=== PATIENT | male | born 2000 | race Native Hawaiian/Other Pacific Islander ===

== ENCOUNTER 2022-05-05 02:12 | Emergency (ER) | payer BC, SELFPAY ==
[2022-05-05 02:22] VITALS: BP 153/89; PULSE 89; RESP 18; TEMP 36.7; O2SAT 99; BMI 33.7
[2022-05-05 02:52] VITALS: BP 145/78; PULSE 89; RESP 18; TEMP 36.6; O2SAT 99
[2022-05-05 03:02] VITALS: BP 145/78; PULSE 89; RESP 18; TEMP 36.6
--- NOTE | 2022-05-05 04:01 | ED_ITS ---
HPI - General Adult General Chief complaint: Unspecified Complaint, Adult Stated complaint: body aches, headaches Time Seen by Provider: 05/05/22 02:17 Source: patient Mode of arrival: ambulatory Limitations: no limitations History of Present Illness HPI narrative: 22-year-old male to female transitioning patient presents to the emergency department with non specific feeling of unwell. Reports vague anterior neck and jaw pain radiating into the left [employer] numbness and tingling intermittently in the bilateral hands and legs with an abnormal taste in the mouth for the last 5 days. There is no chest pain, syncope, dyspnea. Does note some anxiety but no specific psychosis or significant mental health concerns today. Was apparently evaluated in the [facility] ED earlier today and had a workup, exam, swabs for COVID, influenza and RSV that were thankfully negative. Patient takes no medications, has no allergies, is not experiencing any fevers. Has not recently had any surgeries. There has been no trauma or injury. She is not able to describe any emergent sound in symptoms to me today. Has some generalized body aches but nonspecific again. Is able to eat and drink normally, no urinary guerita nges. Just feels generally unwell. Reports that she moved to our area in January, has not established with a primary care provider but does have an appointment pending literally tomorrow to look into this further. When I try to probe and ask what is so concerning that she went to a 2nd emergency department at 2:00 a.m., she is not able to elaborate on this. When asked specifically if she is wanting a full exam, assessment, lab work, she nods. Denies any significant past medical history, surgical history, medications, allergies. Denies any use of illicit substances. Pending appointment is with Dr. Clark at [facility] she reports. ROS is positive for multiple complaints as described above. No specific cardiovascular, respiratory, hematological or neurological changes Related Data Home Medications Medication Instructions Recorded Confirmed No Known Home Medications 05/05/22 05/05/22 Allergies Allergy/AdvReac Type Severity Reaction Status Date / Time No Known Drug Allergies Allergy Verified 05/05/22 02:25 [facility] Medical History (Updated 05/05/22 @ 02:52 by Konstantin Esqueda RN) Anxiety Depression Surgical History (Updated 05/05/22 @ 02:52 by Konstantin Esqueda RN) No significant past surgical history Social History Smoking Status: Never smoker Do you use any of these nicotine containing products: None Second hand tobacco smoke exposure: No How often do you have a drink containing alcohol: never How often do you have six or more drinks on one occasion: Never AUDIT-C Alcohol total score: 0 Non-prescribed substance use: denies use Exam Const: Vital Signs, click to edit/add: Vital Signs - 24 hr 05/05/22 02:22 05/05/22 02:52 05/05/22 03:02 Temperature 98.0 F 97.9 F 97.9 F Pulse Rate [Right Pulse Oximeter] 89 89 89 Respiratory Rate 18 18 18 Blood Pressure [Ri ght Upper Arm] 153/89 H 145/78 H 145/78 H Pulse Oximetry 99 99 Oxygen Delivery Me thod Room Air Room Air Documenting provider has reviewed patient's vital signs: yes Common normals: no apparent distress General appearance: cooperative, comfortable and well kempt Other: Anxious but friendly and cooperative. HENMT: Common normals: normocephalic Head and scalp: normocephalic Face and sinus: normal facial exam Mouth: oral and palatal mucosa normal Throat: posterior oropharynx normal Eye: Common normals: PERRL, conjunctivae normal and no scleral icterus Conjunctiva: conjunctiva(e) normal Pupil: PERRL Neck & C-Spine: Common normals: full ROM, no lymphadenopathy, no meningeal signs and thyroid normal Thyroid: thyroid normal Resp: Common normals: normal respiratory effort, no use of accessory muscles and clear to auscultation bilaterally Effort & inspection: able to speak in complete sentences Auscultation: clear to auscultation bilaterally Cardio: Common normals: regular rate, regular rhythm, S1 normal heart sound, S2 normal heart sound, no murmurs and peripheral pulses 2+ throughout Rate: regular rate Rhythm: regular rhythm Heart sounds: S1 normal and S2 normal Peripheral pulses: pulses 2+ throughout GI: Common normals: Normal to inspection, nondistended, normoactive bowel sounds present, soft to palpation, non-tender, no hepatosplenomegaly and no masses Palpation: soft and no hepatosplenomegaly Extremity: Common normals: normal to inspection, normal capillary refill and no pedal edema Neuro: Meningeal signs: no meningeal signs Gait (neuro): normal gait (Observed walking to exam room) Motor exam: strength 5/5 throughout, no tremor noted and no movement abnormalities noted Psych: Common normals: speech normal Appearance: well kempt Attitude: engaged Speech: normal speech Mood and affect: anxious (Mildly anxious but redirectable.) Insight: insight good Judgement: judgment good Skin: Common normals: no rashes or lesions noted General skin exam: no rashes or lesions noted Course Vital Signs Vital signs: Initial Vital Signs Temperature 98.0 F 05/05/22 02:22 Temperature Source Temporal Artery Scan 05/05/22 02:22 Pulse Rate 89 05/05/22 02:22 Respiratory Rate 18 05/05/22 02:22 Blood Pressure 153/89 H 05/05/22 02:22 Blood Pressure Mean 110 05/05/22 02:22 Blood Pressure Position Sitting 05/05/22 02:22 Pulse Oximetry 99 05/05/22 02:22 Oxygen Delivery Method 05/05/22 02:22 Vital Signs Temperature 98.0 F 05/05/22 02:22 Pulse Rate 89 05/05/22 02:22 Respiratory Rate 18 05/05/22 02:22 Blood Pressure 153/89 H 05/05/22 02:22 Pulse Oximetry 99 05/05/22 02:22 Oxygen Delivery Method 05/05/22 02:22 Temperature 97.9 F 05/05/22 03:02 Pulse Rate 89 05/05/22 03:02 Respiratory Rate 18 05/05/22 03:02 Blood Pressure 145/78 H 05/05/22 03:02 Pulse Oximetry 99 05/05/22 02:52 Oxygen Delivery Method 05/05/22 02:52 Medical Decision Making [facility] Narrative Medical decision making narrative: Counseled patient that with a completely normal exam, normal swabs, reassuring vital signs, I do not recommend that we repeat the work that is already been done and different emergency room tonight. She needs to establish care with a primary care provider, have routine basic labs in preventative care performed. They should potentially explore anxiety more. I am fully reassure that there is not an emergent process going on tonight and she is safe to leave the emergency department. She verbalizes understanding and agreement. I do suspect that there could be a viral illness flaring her symptoms more and have discussed this. Typical anticipatory guidance and warning symptoms discussed regarding this diagnosis. Discharge Plan Discharge Clinical Impression: Vague bodily discomfort Patient Disposition: Home, Self-Care Condition: Stable Instructions: Viral Syndrome (ED) Additional Instructions: I do not appreciate any emergent illness today. I am reassured by the fact that you have had an assessment now at 2 facilities today and have had swabs negative for COVID, RSV, influenza. As we discussed, I think he would benefit greatly from a full physical, lab work and a relationship with a primary care provider. In the emergency setting, I do not detect any emergent threats to your health. Please keep your clinic appointment for tomorrow to discuss your symptoms further. Activity Level: No Restrictions Discharge Diet: Regular Prescriptions: No Action No Known Home Medications Stand Alone Forms: [employer] Info Instructions
== END 2022-05-05 03:10 | disposition home or self-care (01) ==
LOC: ED 03:08
PROVIDERS: Emergency Provider Family Medicine; PCP Family Medicine
DX: M79.10 Myalgia, unspecified site (principal)
CPT/HCPCS: 99282

== ENCOUNTER 2022-05-18 23:59 | Emergency (ER) | payer BC, SELFPAY ==
[2022-05-19 00:09] VITALS: BP 152/102; PULSE 85; RESP 18; TEMP 37; O2SAT 99; BMI 37.9
--- NOTE | 2022-05-19 00:30 | ED.GENADULT ---
HPI - General Adult General Chief complaint: Sore Throat Stated complaint: hard to breath,throat hurts Time Seen by Provider: 05/19/22 00:02 Source: patient Mode of arrival: ambulatory Limitations: no limitations History of Present Illness HPI narrative: 22-year-old male to female transitioning patient presents to the emergency department a 2nd time in 2 weeks with vague non emergent complaints. Patient was evaluated in the middle of the night 1300 with mild symptoms consistent with a viral illness, no workup was performed as they had had appropriate swabs, blood work and workup earlier in the same day at a different emergency department. Patient reports sore throat, vague mild body aches, feeling generally unwell. Biggest concern is sore throat. There has been no fever. Reports that they were evaluated in an urgent care 9 days ago and a strep swab was positive only at that time. They were treated with penicillin and this has not made any improvement in symptoms. They were told if symptoms worsened, to come to the emergency department. She comes in today for re-evaluation even though things have not worsened. Again, it is the middle of the night. No use of Tylenol or ibuprofen today. Patient presented again to urgent care, reports [facility] in [place] 3 days ago for the exact same complaints. Reports that a sed rate, CBC and basic metabolic panel by the description I can gather was performed and these were all negative specifically. Has 1 more day of the penicillin remaining. Is able to eat and drink. No pertinent travel or new illness exposures. Had an appointment scheduled with primary care but had to cancel last minute. Has not yet rescheduled. No obvious other source of issues like reflux, injury or trauma. Does not smoke. Past medical history notable for hypertension, not currently on treatment. Denies use of any prescription medications besides the penicillin. Denies allergies. Socially nonsmoker with no unusual exposures or travel. Related Data Home Medications Medication Instructions Recorded Confirmed dexamethasone 4 mg tablet 4 mg PO DAILY 05/19/22 05/19/22 penicillin V potassium 500 mg 500 mg PO BID 05/19/22 05/19/22 tablet Allergies Allergy/AdvReac Type Severity Reaction Status Date / Time No Known Drug Allergies Allergy Verified 05/05/22 02:25 [facility] Medical History Anxiety Depression Surgical History No significant past surgical history Social History Smoking Status: Never smoker Do you use any of these nicotine containing products: None Second hand tobacco smoke exposure: No How often do you have a drink containing alcohol: never How often do you have six or more drinks on one occasion: Never AUDIT-C Alcohol total score: 0 Non-prescribed substance use: denies use Exam Const: Vital Signs, click to edit/add: Vital Signs - 24 hr 05/19/22 00:09 Temperature 98.6 F Pulse Rate [Right Pulse Oximeter] 85 Respiratory Rate 18 Blood Pressure [Ri ght Upper Arm] 152/102 H Pulse Oximetry 99 Oxygen Delivery Me thod Room Air Documenting provider has reviewed patient's vital signs: yes Common normals: no apparent distress and alert General appearance: cooperative, comfortable and well kempt Orientation/consciousness: Yes awake HENMT: Common normals: normocephalic and TM's normal bilaterally Head and scalp: normocephalic Face and sinus: normal facial exam Tympanic membrane: TM's normal bilaterally Other: No swelling to the pharyngeal arches in the oropharynx. There is a slight blistery pattern all long the posterior soft palate suspicious for [id number] disease. Tonsils are not enlarged. Eye: Common normals: conjunctivae normal and no scleral icterus Conjunctiva: conjunctiva(e) normal Neck & C-Spine: Common normals: full ROM and no lymphadenopathy Resp: Common normals: normal respiratory effort and clear to auscultation bilaterally Auscultation: clear to auscultation bilaterally Cardio: Common normals: regular rate, regular rhythm, S1 normal heart sound, S2 normal heart sound, no murmurs and peripheral pulses 2+ throughout Rate: regular rate Rhythm: regular rhythm Heart sounds: S1 normal and S2 normal Peripheral pulses: pulses 2+ throughout Neuro: Sensorium/orientation: awake and alert Speech: speech normal Motor exam: no tremor noted and no movement abnormalities noted Psych: Common normals: speech normal Appearance: well kempt Attitude: engaged Activity/motor behavior: appropriate eye contact Speech: normal speech Mood and affect: euthymic mood Insight: fair Judgement: fair Skin: Common normals: no rashes or lesions noted General skin exam: no rashes or lesions noted Course Course Hospital Course: Counseled patient on reassuring exam. Recommend repeat swabs for strep, viral studies. Since patient has had appropriate sed rate, CBC and basic metabolic panel per their report within the last 3 days and no worsening of any symptoms, I do not recommend repeating these. Suspect chronic sore throat from chronic disease such as GERD, postnasal drip or other ongoing etiology, none of which seem least little bit emergent tonight. If swabs normal, will recommend GI cocktail and Prilosec. Vital Signs Vital signs: Initial Vital Signs Temperature 98.6 F 05/19/22 00:09 Temperature Source Temporal Artery Scan 05/19/22 00:09 Pulse Rate 85 05/19/22 00:09 Respiratory Rate 18 05/19/22 00:09 Blood Pressure 152/102 H 05/19/22 00:09 Blood Pressure Mean 118 05/19/22 00:09 Blood Pressure Position Sitting 05/19/22 00:09 Pulse Oximetry 99 05/19/22 00:09 Oxygen Delivery Method 05/19/22 00:09 Vital Signs Temperature 98.6 F 05/19/22 00:09 Pulse Rate 85 05/19/22 00:09 Respiratory Rate 18 05/19/22 00:09 Blood Pressure 152/102 H 05/19/22 00:09 Pulse Oximetry 99 05/19/22 00:09 Oxygen Delivery Method 05/19/22 00:09 Temperature 98.6 F 05/19/22 00:09 Pulse Rate 85 05/19/22 00:09 Respiratory Rate 18 05/19/22 00:09 Blood Pressure 152/102 H 05/19/22 00:09 Pulse Oximetry 99 05/19/22 00:09 Oxygen Delivery Method 05/19/22 00:09 Medical Decision Making MDM Narrative Medical decision making narrative: Patient able to speak in full sentences, no signs of hypoxia, no swelling of the airway. Able to swallow, manage secretions and benign, reassuring physical exam. Swabs are reviewed without any signs of strep, influenza, COVID or RSV. This is reassuring as well. Findings were discussed with patient. Again, we have reviewed appropriate use of the emergency department. Strongly encouraged to make a follow-up appointment with primary care. We discussed that the mild viral infections still persisting or this could be related to an ongoing chronic sore throat issue. Based on BMI, the most likely etiology if this were a chronic issue would be from gastric reflux. Recommended a trial of Prilosec and a GI cocktail to see if this improves symptoms. If symptoms are improved with this, would recommend that the patient self initiate [id number] Prilosec for 2-3 weeks. Make a primary care followup as soon as possible to address hypertension, ongoing issues. Lab Data Labs: Lab Results 05/19/22 05/19/22 Range/Units 00:30 00:30 SARS-CoV-2 (PCR) Negative SARS-CoV-2 (Negative) Influenza Type A (PCR) Negative PCR FLU A (Negative) Influenza Type B (PCR) Negative PCR FLU B (Negative) RSV (PCR) Negative PCR RSV (Negative) Group A Strep DNA NOT DETECTED (Not Detectd) Discharge Plan Discharge Clinical Impression: Chronic sore throat Patient Disposition: Home, Self-Care Condition: Stable Additional Instructions: Your test for strep, RSV, influenza, COVID are all negative today. This is reassuring. Since you have had appropriate blood work within the last few days, I do not recommend repeating these since her exam is also reassuring. Her sore throat is from 1. The most likely reason is you are still having persistent symptoms consistent with a viral sore throat, as others have counseled you on as well. This may last up to a few weeks. Your certainly not taking advantage of [id number] treatments that would be very helpful to you. Appropriate dose of Tylenol is 650 mg every 4 hours or 1000 mg every 6 hours. You may take a maximum of 4000 mg per day. You may also use ibuprofen, 600 mg every 6 hours. Use these as first-line therapy for your sore throat. Other etiologies for so through wrote include chronic issues such as gastric reflux or postnasal drip. We have given you a dose of Prilosec and a GI cocktail to see if this improves your throat. Effects of the GI cocktail will be immediate and last only an hour or 2 but the Prilosec will be longer lasting. If you notice that your symptoms are much better controlled for the next 24 hours, this would be a sign that reflux is playing a part in your symptoms. You would then purchase some [id number] omeprazole at any local pharmacy or grocery store and take this once daily for the next few weeks. Please keep an appointment with the primary care provider to evaluate your ongoing issues and high blood pressure. You mentioned that your given a dose of steroids the you did not take, based on your exam and presentation today, I do not recommend refilling this as it can make your blood pressure higher and is not likely to be beneficial to you. Activity Level: No Restrictions Discharge Diet: Regular Prescriptions: No Action penicillin V potassium 500 mg tablet 500 mg PO BID Label Comments: TAKE 1 TABLET BY MOUTH TWICE DAILY FOR 10 DAYS dexamethasone 4 mg tablet 4 mg PO DAILY Follow Up/Referrals: Moni Clark MD [Referring] - Stand Alone Forms: [employer] Info Instructions
[2022-05-19 00:55] LABS: Strep A DNA Probe* NOT DETECTED (Not Detectd)
[2022-05-19 01:06] LABS: PCR FLU A Negative PCR FLU A (Negative); PCR FLU B Negative PCR FLU B (Negative); PCR RSV Negative PCR RSV (Negative); SARS PCR* Negative SARS-CoV-2 (Negative)
[2022-05-19 01:15] VITALS: TEMP 37
[2022-05-19] MEDS: OMEPRAZOLE 20 MG CAPSULE DR PO (01:15)
[2022-05-19] MEDS: IBUPROFEN 200 MG TABLET 600 MG PO (01:15)
[2022-05-19] MEDS: GI COCKTAIL (VISC LIDO/ANTACID) 30 ML PO (01:24)
[2022-05-19 01:29] VITALS: BP 145/85; PULSE 85; RESP 18; TEMP 36.1; O2SAT 99
[2022-05-19 01:38] VITALS: BP 145/85; PULSE 85; RESP 18; TEMP 36.1
== END 2022-05-19 01:39 | disposition home or self-care (01) ==
PROVIDERS: Emergency Provider Family Medicine; PCP Family Medicine
DX: J02.9 Acute pharyngitis, unspecified (principal)
CPT/HCPCS: 87502; 87634; 87635; 87651; 99282; 99283; A9270

== ENCOUNTER 2022-05-25 14:04 | Outpatient (CLI) | payer BC, SELFPAY ==
--- OUTSIDE RECORDS SUMMARY | 2022-05-25 14:07 | XMS_ITS | Clinical Summary ---
:2000 Author Organization [facility] [place] [address] Care Team Providers Name Role Phone Pcp, No Primary Care Provider Unavailable Allergies No known active allergies Medications Medication Sig Dispensed Refills Start Date End Date Status penicillin v potassium TAKE 1 TABLET 0 05/10/2022 Active (PEN-VEE K) 500 mg BY MOUTH TWICE tablet DAILY FOR 10 DAYS dexAMETHasone Take 1 tablet 9 Tablet 0 05/16/2022 A ctive (DECADRON) 4 mg by mouth twice tabletIndications: daily for 3 Tension headache, Neck days then take pain, Strep throat 1 tablet daily for 3 days tiZANidine (ZANAFLEX) Take 1 tablet 7 Tablet 0 05/16/2022 Active 4 mg by mouth every tabletIndications: bedtime for Neck pain muscle [id number] cloNIDine HCL Take 1 Tablet 1 Tablet 0 05/16/2022 05/16/2022 (CATAPRES) 0.1 mg (0.1 mg) by tabletIndications: mouth one time Tension headache for 1 dose. dexAMETHasone Take 1 Tablet 6 Tablet 0 05/17/2022 05/20/2022 (DECADRON) 4 mg (4 mg) by mouth tabletIndications: two times daily Medication refill with meals for 3 days. Active Problems Not on file Encounters Date Type Specialty Care Team Description 05/17/2022 Telephone Marissa Pop NP 05/16/2022 Office Visit Mariela Anderson PA Head Pain/problem 05/16/2022 Telephone Pcp, No Need Meds 05/16/2022 Travel 05/13/2022 Telephone Ally Manley MD A ppointment from Last 3 Months Social History Tobacco Use Types Packs/Day Years Used Date Never Assessed Sex Assigned at Date Recorded Not on file COVID-19 Exposure Response Date Recorded In the last 10 days, have you been in contact No / Unsure 05/16/2022 12:58 PM ESCROW ASSISTANT with someone who was confirmed or suspected to have Coronavirus/COVID-19? Obstetrics History Last Filed Vital Signs Vital Sign Reading Time Taken Comments Blood Pressure 176/113 05/16/2022 2:07 PM [facility]CROW ASSISTANT Pulse 84 05/16/2022 1:11 PM [employer]CROW ASSISTANT Temperature 36.8 ??C (98.3 ??F) 05/16/2022 1:11 PM ESCROW ASSISTANT Respiratory Rate 20 05/16/2022 1:11 PM ESCROW ASSISTANT Oxygen Saturation 98% 05/16/2022 1:11 PM ESCROW ASSISTANT Inhaled Oxygen Concentration - - Weight - - Height - - Body Mass Index - - Plan of Treatment Upcoming Encounters Date Type Specialty Care Team Description 05/28/2022 [place] [id number] [place] [phone] (Wo rk) Health Maintenance Due Date Last Done Comments COVID-19 vaccine series (#1) 2000 HPV series for age 9-26 (1 - Male 2-dose series) 02/20/2011 Tdap 02/20/2011 Depression screening for age 12+ 2012 HIV for age 15-65 02/20/2015 BMI (ht and wt on same day) for age 18+ 02/20/2018 Hepatitis C screening for age 18-79 02/20/2018 Tetanus booster 2020 Influenza for age 9-49 02/25/2022 Procedures Procedure Name Priority Date/Time Associated Comments Diagnosis ISTAT CHEM 8 CLINIC Routine 05/16/2022 1:55 PM Tension headach e Results for this ONLY AND BUF OWA NUM ESCROW ASSISTANT procedu re are in [facility] the results section. CBC WITH AUTO Routine 05/16/2022 1:47 PM Tension headache Resu lts for this DIFFERENTIAL ESCROW ASSISTANT procedure are i n the results section. SEDIMENTATION RATE Routine 05/16/2022 1:47 PM Tension headache Results for this ES[employer]OW ASSISTANT procedure are i n the results section. TSH Routine 05/16/2022 1:47 PM Tension headache Resul ts for this [employer]OW ASSISTANT procedure are i n the results section. CBC WITH AUTO Routine 05/16/2022 1:47 PM Tension headache Resu lts for this DIFFERENTIAL ESCROW ASSISTANT procedure are i n the results section. from Last 3 Months Results (ABNORMAL) ISTAT CHEM 8 (SELECTED SITES ONLY) (05/16/2022 1:55 PM ESCROW ASSISTANT) P athologist Signature SODIUM, POCT 140 135 - 145 05/16/2022 [facility] mmol/L 1:58 PM ESCROW ASSISTANT [facility] POTASSIUM, POCT 3.9 3.5 - 5.0 05/16/2022 [facility] mmol/L 1:58 PM ESCROW ASSISTANT [facility] CHLORIDE, POCT 102 98 - 107 05/16/2022 [facility] mmol/L 1:58 PM ESCROW ASSISTANT [facility] CO2,TOTAL, POCT 26 21 - 31 05/16/2022 [facility] mmol/L 1:58 PM ESCROW ASSISTANT [facility] ANION GAP, POCT 17 5 - 18 05/16/2022 [facility] 1:58 PM ESCROW ASSISTANT [facility] GLUCOSE, POCT 98 65 - 100 05/16/2022 [facility] mg/dL 1:58 PM ESCROW ASSISTANT [facility] IONIZED 1.23 1.15 - 05/16/2022 [facility] CALCIUM, POCT 1.27 1:58 PM ESCROW ASSISTANT [place] mmol/L [facility] BUN, POCT 9 8 - 25 05/16/2022 [facility] mg/dL 1:58 PM ESCROW ASSISTANT [facility] CREATININE, 1.00 0.57 - 05/16/2022 [facility] POCT 1.11 mg/dL 1:58 PM ESCROW ASSISTANT [facility] Comment: Caution: Patients taking Hydrox yurea have falsely increased iStat Creatinine results. Verify creatinine results order ing a Creatinine (89479.2) BUN/CREAT RATIO, POCT 9 (L) 10 - 20 05/16/2022 1:58 PM ESCROW ASSISTANT [facility] eGFR 05/16/2022 1:[address] [facility] Comment: Unable to calculate. Specimen Anatomical Collection Method Collection Time Receive d Time (Source) Location / / Volume Laterality Blood BLOOD SPECIMEN / 05/16/2022 1:55 PM 05/16 1:58 Unknown ESCROW ASSISTANT PM ESCROW ASSISTANT Mariela WOLF CHEMISTRY Performing Organization Address City/State/ZIP Code Phon e Number [facility] [id number] [place], [place] [address] MEDICAL CLINIC SEDIMENTATION RATE (05/16/2022 1:47 PM ESCROW ASSISTANT) [facility] Method Time Signature SEDIMENTATION RATE <1 <20 mm/hr 05/17/2022 BOBY LINKLilia LT 3:14 PM ESCROW ASSISTANT [facility] Specimen Anatomical Collection Method / Collection Time Recei reddy Time (Source) Location / Volume Laterality Blood BLOOD SPECIMEN / Venipuncture / 05/16/2022 1:47 2021 1:50 Unknown Unknown PM ESCROW ASSISTANT PM ESCROW ASSISTANT Mariela WOLF HEMATOLOGY Performing Organization Address City/[facility] Code Phon e Number [facility] [address] [place] [address] LABORATORY-CENTRAL 2000 LABORATORY (ABNORMAL) CBC WITH AUTO DIFFERENTIAL (05/16/2022 1:47 PM ESCROW ASSISTANT) [facility] Method Time Signature WHITE BLOOD 4.9 4.5 - 11.0 05/16/2022 [facility] COUNT thou/cu mm 1:53 PM ESCROW ASSISTANT [facility] RED BLOOD COUNT 5.89 (H) 4.00 - 05/16/2022 [facility] 5.20 1:53 PM ESCROW ASSISTANT [place] mil/cu mm MEDICAL CLINIC HEMOGLOBIN 17.4 (H) 12.0 - 05/16/2022 [facility] 16.0 g/dL 1:53 PM ESCROW ASSISTANT [facility] HEMATOCRIT 50.7 33.0 - 05/16/2022 [facility] 51.0 % 1:53 PM ESCROW ASSISTANT [facility] MCV 86 80 - 100 05/16/2022 [facility] fL 1:53 PM ESCROW ASSISTANT [facility] MCH 29.5 26.0 - 05/16/2022 [facility] 34.0 pg 1:53 PM ESCROW ASSISTANT [facility] MCHC 34.3 32.0 - 05/16/2022 [facility] 36.0 g/dL 1:53 PM ESCROW ASSISTANT [facility] RDW 12.9 11.5 - 05/16/2022 [facility] 15.5 % 1:53 PM ESCROW ASSISTANT [facility] PLATELET COUNT 283 140 - 440 05/16/2022 [facility] thou/cu mm 1:53 PM [facility] MPV 9.7 6.5 - 11.0 05/16/2022 [facility] fL 1:53 PM ESCROW ASSISTANT [facility] NRBC 0.0 % 05/16/2022 [facility] 1:53 PM ESCROW ASSISTANT [facility] ABS NRBC 0.0 thou /cu 05/16/2022 [facility] mm 1:53 PM ESCROW ASSISTANT [facility] % NEUT 54.8 % 05/16/2022 [facility] 1:53 PM ESCROW ASSISTANT [facility] % LYMPH 35.1 % 05/16/2022 [facility] 1:53 PM [facility] % MONO 8.1 % 05/16/2022 [facility] 1:53 PM [facility] % EOS 1.0 % 05/16/2022 [facility] 1:53 PM [facility] % BASO 0.8 % 05/16/2022 [facility] 1:53 PM [facility] % IMMATURE GRAN 0.2 % 05/16/2022 [facility] ([place] 1:53 PM ESCROW ASSISTANT [facility] WOLF Y OS) MEDICAL CLINIC ABSOLUTE 2.7 1.7 - 7.0 05/16/2022 [facility] NEUTROPHILS thou/cu mm 1:53 PM [facility] ABSOLUTE 1.7 0.9 - 2.9 05/16/2022 [facility] LYMPHOCYTES thou/cu mm 1:53 PM [facility] ABSOLUTE 0.4 <0.9 05/16/2022 [facility] MONOCYTES thou/cu mm 1:53 PM [facility] ABSOLUTE 0.1 <0.5 05/16/2022 [facility] EOSINOPHILS thou/cu mm 1:53 PM [facility] ABSOLUTE 0.0 <0.3 05/16/2022 [facility] BASOPHILS thou/cu mm 1:53 PM [facility] ABSOLUTE 0.0 <0.3 05/16/2022 [facility] IMMATURE thou/cu mm 1:53 PM [facility] GRANULOCYTES([facility] ,MYELOS,PROS) CLINIC Specimen Anatomical Collection Method / Collection Time Recei reddy Time (Source) Location / Volume Laterality Blood BLOOD SPECIMEN / Venipuncture / 05/16/2022 1:47 2021 1:50 Unknown Unknown PM ESCROW ASSISTANT PM ESCROW ASSISTANT Mariela WOLF HEMATOLOGY Performing Organization Address [facility]/ZIP Code Phon e Number [facility] [address] [place], [place] [address] MEDICAL CLINIC TSH (05/16/2022 1:47 PM ESCROW ASSISTANT) P athologist Signature TSH 0.89 0.35 - 4.94 05/17/2022 [facility] uIU/mL 10:07 PM ESCROW ASSISTANT LABORATORY-CENTR AL LABORATORY Specimen Anatomical Collection Method / Collection Time Recei reddy Time (Source) Location / Volume Laterality Blood BLOOD SPECIMEN / Venipuncture / 05/16/2022 1:47 2021 1:50 Unknown Unknown PM ESCROW ASSISTANT PM ESCROW ASSISTANT Narrative [facility] LABORATORY-CENTRAL LABORAT ORY - 05/17/2022 10:07 PM ESCROW ASSISTANT In Adults, TSH values between 5.00 and 10.00 uIU/ml do not necessarily indicate the presence of Hyp othyroidism. Correlation with clinical findings such as presence of goiter and/or Thyroperoxidase (TPO) Antibody ma y be helpful. For more information please refer to KAIA 20 04; 291: [phone]. Mariela WOLF CHEMISTRY Performing Organization Address City/[facility]/ZIP Code Phon e Number [facility] [address] [place] [address] LABORATORY-CENTRAL 2000 LABORATORY from Last 3 Months Insurance Payer Benefit Plan / Subscriber ID Effective Dates Phone Addre ss Type Group [employer] OF [id number] 2021-Present [address] [address] [place] [address] [address] [place] (Home) [address] [place] [address] Care Teams Piercer Relationship Specialty Start Date End Date Pcp, No PCP - General 05/16/22 .
[2022-05-26 22:16] LABS: C Reactive Protein* < 0.5 mg/dL (0.5-1.0)
== END 2022-05-25 14:05 | disposition home or self-care (01) ==
LOC: LKVREF 14:04
PROVIDERS: PCP Family Medicine; Visit Provider Family Medicine
DX: J31.2 Chronic pharyngitis (principal)
CPT/HCPCS: 86140

== ENCOUNTER 2022-06-04 09:56 | Outpatient (RCR) | payer BC, SELFPAY | END 2022-08-03 10:00 | disposition home or self-care (01) | PROVIDERS: PCP Family Medicine; Visit Provider Family Medicine | DX: R51.9 Headache, unspecified (principal); M54.2 Cervicalgia; Z51.89 Encounter for other specified aftercare | CPT/HCPCS: 97140; 97162 ==